=== PATIENT | male | born 1960 | race Caucasian/White ===

== ENCOUNTER → 2017-10-23 | Outpatient (CLI) | payer OTHER ==
[~2017-10-23] MED LIST: MOTRIN 800800 MG/TAB PO
== END ==
LOC: COL.RAD 13:03
DX: M48.02 Spinal stenosis, cervical region (principal); M54.14 Radiculopathy, thoracic region

== ENCOUNTER 2018-08-05 09:46 | Outpatient (RCR) | payer OTHER | END 2018-11-03 | disposition home or self-care (01) | LOC: WSOT | DX: R29.898 Other symptoms and signs involving the musculoskeletal system (principal); Z98.1 Arthrodesis status; Z96.7 Presence of other bone and tendon implants ==